=== PATIENT | male | born 1975 | race Caucasian/White ===

== ENCOUNTER 2017-03-01 23:23 | Emergency (ER) | payer OTHER ==
[~2017-03-01] VITALS: Ht 167.6 cm; Wt 108.9 kg
[~2017-03-01 23:23] MED LIST: FLEXERIL10 MG PO; GLYBURIDE5 MG PO; HYDROCODONE BIT1 T11 PO; METFORMIN1000 MG PO; MOTRIN800 MG PO; NKHM; PEN-VEE K500 MG PO; PENICILLIN VK500 MG PO; PREDNICOT20 MG PO
== END 2017-03-02 00:37 | disposition home or self-care (01) ==
LOC: ED 23:23
DX: R73.9 Hyperglycemia, unspecified (principal); Z79.84 Long term (current) use of oral hypoglycemic drugs; Z79.899 Other long term (current) drug therapy

== ENCOUNTER → 2022-12-13 | Emergency (ER) | payer OTHER ==
[~2022-12-13] VITALS: Ht 172.7 cm; Wt 127.9 kg
[~2022-12-13] MED LIST changes: +MELOXICAM15 MG PO
== END ==
LOC: ED 09:08
DX: S83.92XA Sprain of unspecified site of left knee, initial encounter (principal); I10 Essential (primary) hypertension; Z79.899 Other long term (current) drug therapy; W18.09XA Striking against other object with subsequent fall, initial encounter; Y93.89 Activity, other specified; Y92.89 Other specified places as the place of occurrence of the external cause; Y99.8 Other external cause status

== ENCOUNTER 2023-11-05 17:45 | Emergency (ER) | payer OTHER ==
[~2023-11-05] VITALS: Ht 167.6 cm; Wt 133.8 kg
[2023-11-05] MEDS ORDERED: JARDIANCE25 MG PO (17:50)
[2023-11-05] MEDS ORDERED: ASPIRIN ADULT L81 M2 PO (17:50)
[2023-11-05] MEDS ORDERED: AMLODIPINE BESY10 MG PO (17:50)
[2023-11-05] MEDS ORDERED: INSULIN LI100 UNIT/1 SQ (17:51)
[2023-11-05] MEDS ORDERED: TRULICITY4.5 MG/0.5 SQ (17:52)
[2023-11-05] MEDS ORDERED: QUETIAPINE FUMA50 M1 PO (17:52)
[2023-11-05] MEDS ORDERED: SODIUM CHLORIDE 0.9% 1,000 ML IV ONE (18:00)
[2023-11-05 18:15] LABS: VENOUS BLOOD GAS O2 SAT 75.2 % (60.0-85.0)
[2023-11-05 18:16] LABS: BASO % 0.3 % (0.0-1.0); EOS # 0.1 10*3/uL (0.0-0.4); EOS % 0.6 % (1.0-4.0); HEMATOCRIT 40.3 % (42.0-52.0); LYMPH # 1.3 10*3/uL (1.3-4.4); LYMPH % 16.7 % (27.0-41.0); MEAN CELL VOLUME 86.3 fl (80.0-94.0); MEAN CORPUSCULAR HGB 28.1 pg (27.0-31.0); MEAN CORPUSCULAR HGB CONC 32.5 g/dl (33.0-37.0); MEAN PLATELET VOLUME 10.6 fl (9.6-12.3); MONO # 0.6 10*3/uL (0.1-1.0); MONO % 8.1 % (3.0-9.0); NEUT # 5.8 10*3/uL (2.3-7.9); NEUT % 73.8 % (47.0-73.0); PLATELET COUNT AUTOMATED 216 10*3/uL (130-400); RED BLOOD COUNT 4.67 10*6/uL (4.50-5.90); RED CELL DISTRI WIDTH 13.7 % (0-14.5); WHITE BLOOD COUNT 7.8 10*3/uL (4.8-10.8)
[2023-11-05] MEDS ORDERED: Ondansetron Hydrochloride 4 MG/2 ML VIAL IV ONE (18:25)
[2023-11-05 18:35] LABS: ALKALINE PHOSPHATASE 103 U/L (46-116); BUN 8 mg/dl (9-23); CHLORIDE 102 mmol/L (98-107); POTASSIUM 3.9 mmol/L (3.4-5.1); SGPT/ALT 40 U/L (5-49); TOTAL PROTEIN 7.2 gm/dL (6.0-8.0)
[2023-11-05] MEDS ORDERED: diphenhydrAMINE hydrochloride 50 MG/ML VIAL IV ONE (19:20)
[2023-11-05] MEDS ORDERED: Metoclopramide Hydrochloride 10 MG/2 ML AMP IV ONE (19:20)
[2023-11-05 19:48] LABS: BILIRUBIN Negative (Negative); BLOOD Negative (Negative); CLARITY Clear (Clear); COLOR Yellow (Yellow); GLUCOSE 3+ (Negative); KETONE 4+ (Negative); LEUKO ESTERASE Negative (Negative); NITRITE Negative (Negative); PH 5.5 (4.5-8.0); SPECIFIC GRAVITY >= 1.030 (1.001-1.030)
[2023-11-05 19:56] LABS: BACTERIA TRACE; FINE GRANULAR CAST 0-2; MUCOUS 1+; RBC 0-2 rbc/hpf (0-2)
[2023-11-05] MEDS ORDERED: Ondansetron4 MG PO (20:05)
== END 2023-11-05 20:18 | disposition home or self-care (01) ==
LOC: ED 17:45
PROVIDERS: Nurse Practitioner Family
DX: A08.4 Viral intestinal infection, unspecified (principal); R11.2 Nausea with vomiting, unspecified; E11.9 Type 2 diabetes mellitus without complications; Z90.49 Acquired absence of other specified parts of digestive tract; Z79.899 Other long term (current) drug therapy; Z79.84 Long term (current) use of oral hypoglycemic drugs; Z79.82 Long term (current) use of aspirin; Z79.4 Long term (current) use of insulin

== ENCOUNTER 2024-09-05 04:40 | Emergency (ER) | payer OTHER ==
[~2024-09-05] VITALS: Ht 167.6 cm; Wt 138.3 kg
[~2024-09-05 04:40] MED LIST changes: +AMLODIPINE BESY10 MG PO; +ASPIRIN ADULT L81 M2 PO; +INSULIN LI100 UNIT/1 SQ; +JARDIANCE25 MG PO; +Ondansetron4 MG PO; +QUETIAPINE FUMA50 M1 PO; +TRULICITY4.5 MG/0.5 SQ
[2024-09-05] MEDS ORDERED: NAPROXEN250 MG PO (05:30)
== END 2024-09-05 05:36 | disposition home or self-care (01) ==
LOC: ED 04:40
DX: M25.511 Pain in right shoulder (principal); I10 Essential (primary) hypertension; E10.9 Type 1 diabetes mellitus without complications; Z79.4 Long term (current) use of insulin; Z79.899 Other long term (current) drug therapy; W18.39XA Other fall on same level, initial encounter; Y93.89 Activity, other specified; Y92.89 Other specified places as the place of occurrence of the external cause; Y99.8 Other external cause status

== ENCOUNTER 2024-11-29 12:01 | Observation (INO) | payer OTHER ==
[2024-11-29] VITALS (7 sets, daily range): BP systolic 138–179; BP diastolic 74–86
[~2024-11-29] VITALS: Wt 158.8 kg
[~2024-11-29 12:01] MED LIST changes: +METFORMIN HCL750 M1 PO; -METFORMIN1000 MG PO; +NAPROXEN250 MG PO
[2024-11-29] MEDS ORDERED: Ondansetron Hydrochloride 4 MG/2 ML VIAL IV ONE ×2 (12:45→17:45)
[2024-11-29 12:58] LABS: BASO # 0.0 10*3/uL (0.0-0.1); BASO % 0.4 % (0.0-1.0); EOS # 0.1 10*3/uL (0.0-0.4); EOS % 1.9 % (1.0-4.0); MEAN CELL VOLUME 84.7 fl (80.0-94.0); MEAN CORPUSCULAR HGB 28.2 pg (27.0-31.0); MEAN PLATELET VOLUME 10.5 fl (9.6-12.3); MONO # 0.3 10*3/uL (0.1-1.0); MONO % 6.1 % (3.0-9.0); NEUT # 4.0 10*3/uL (2.3-7.9); NEUT % 74.9 % (47.0-73.0); NUCLEATED RED BLOOD CELL 0.0 % (0.0-0.0); NUCLEATED RED BLOOD CELL 0.0 10*3/uL (0.0-0.0); PLATELET COUNT AUTOMATED 207 10*3/uL (130-400); RED CELL DISTRI WIDTH 13.2 % (0-14.5)
[2024-11-29] MEDS ORDERED: SODIUM CHLORIDE 0.9% 500 ML IV ONE (13:10)
[2024-11-29 13:18] LABS: BUN 10 mg/dl (9-23); CPK 58 U/L (34-171)
[2024-11-29] MEDS ORDERED: ALBUTEROL 8 GM INHALER INH ONE (15:20)
[2024-11-29] MEDS ORDERED: Dexamethasone Sodium Phospha 20 MG/5 ML VIAL IV ONE (15:20)
[2024-11-29] MEDS ORDERED: diphenhydrAMINE hydrochloride 50 MG/ML VIAL IV ONE (15:20)
[2024-11-29] MEDS ORDERED: Metoclopramide Hydrochloride 10 MG/2 ML VIAL IV ONE (15:20)
[2024-11-29] MEDS ORDERED: PREDNISONE20 M1 PO (15:22)
[2024-11-29] MEDS ORDERED: METHOCARBAMOL750 M1 PO (15:22)
[2024-11-29] MEDS ORDERED: ASPIRIN 325 MG TAB PO ONE (17:50)
[2024-11-29] MEDS ORDERED: Ondansetron Hydrochloride 4 MG/2 ML VIAL IV PRN (18:45)
[2024-11-29] MEDS ORDERED: ASPIRIN ENTERIC COATED 81 MG TAB PO ONE (18:45)
[2024-11-29] MEDS ORDERED: ACETAMINOPHEN 325 MG TAB PO PRN (18:45)
[2024-11-29] MEDS ORDERED: BISACODYL 10 MG SUPP R PRN (18:45)
[2024-11-29] MEDS ORDERED: Acetaminophen/Hydrocodone 5 MG/325 MG TABLET PO PRN (18:45)
[2024-11-29] MEDS ORDERED: ACETAMINOPHEN 650 MG SUPP R PRN (18:45)
[2024-11-29] MEDS ORDERED: DEXTROSE 50% 25 GM/50 ML VIAL IV PRN (18:55)
[2024-11-29] MEDS ORDERED: ZOLOFT100 MG PO ×2 (18:58→22:43)
[2024-11-29] MEDS ORDERED: VISTARIL25 MG PO (19:00)
[2024-11-29] MEDS ORDERED: INSULIN LISPRO 1 UNIT/0.01 ML SQ SCH (22:00)
[2024-11-29] MEDS ORDERED: ZOLOFT50 MG PO (22:43)
[2024-11-30 01:56] VITALS: BP 126/83
[2024-11-30 04:37] LABS: BASO # 0.0 10*3/uL (0.0-0.1); BASO % 0.1 % (0.0-1.0); EOS # 0.0 10*3/uL (0.0-0.4); EOS % 0.0 % (1.0-4.0); MEAN CELL VOLUME 84.6 fl (80.0-94.0); MEAN CORPUSCULAR HGB 28.1 pg (27.0-31.0); MEAN PLATELET VOLUME 10.7 fl (9.6-12.3); MONO # 0.2 10*3/uL (0.1-1.0); MONO % 1.9 % (3.0-9.0); NEUT # 8.5 10*3/uL (2.3-7.9); NEUT % 88.9 % (47.0-73.0); NUCLEATED RED BLOOD CELL 0.0 % (0.0-0.0); NUCLEATED RED BLOOD CELL 0.0 10*3/uL (0.0-0.0); PLATELET COUNT AUTOMATED 238 10*3/uL (130-400); RED CELL DISTRI WIDTH 13.4 % (0-14.5)
[2024-11-30 05:10] LABS: VITAMIN D, 25-HYDROXY 19.3 ng/mL (30-100)
[2024-11-30 05:12] VITALS: BP 131/112
[2024-11-30 05:12] LABS: BUN 15 mg/dl (9-23); FREE T4 1.02 ng/dl (0.89-1.76); LDL CHOLESTEROL 113 mg/dL (9-159); SGPT/ALT 19 U/L (5-49)
[2024-11-30] MEDS ORDERED: Regadenoson 0.4 MG/5 ML SYR IV ONE (06:42)
[2024-11-30] MEDS ORDERED: Technetium Tc 99M Tetrofosmi 0.23 MG KIT IJ SCH (08:20)
[2024-11-30] MEDS ORDERED: EMPAGLIFLOZIN 25 MG TABLET PO SCH (10:00)
[2024-11-30] MEDS ORDERED: FUROSEMIDE 40 MG/4 ML VIAL IV SCH (10:00)
[2024-11-30] MEDS ORDERED: METOPROLOL SUCCINATE XR 50 MG TAB PO SCH (10:00)
[2024-11-30] MEDS ORDERED: ASPIRIN ENTERIC COATED 81 MG TAB PO SCH ×2 (10:00)
[2024-11-30] MEDS ORDERED: ATORVASTATIN CALCIUM 80 MG TAB PO SCH ×2 (10:00→22:00)
[2024-11-30 12:01] VITALS: BP 152/74
[2024-11-30] MEDS ORDERED: ATORVASTATIN CA80 M1 PO (13:54)
[2024-11-30] MEDS ORDERED: METOPROLOL SUCC50 M1 PO (13:54)
[2024-11-30 16:00] VITALS: BP 136/55
== END 2024-11-30 19:45 | disposition home or self-care (01) ==
LOC: ED 12:01 → EDHOLD 17:52 → 5E 18:44 → EDHOLD 11-30 01:34 → 5E 11-30 08:07
PROVIDERS: Emergency Medicine; Student in an Organized Health Care Education/Training Program; ADMIT Internal Medicine; ATTEND Internal Medicine
DX: M94.0 Chondrocostal junction syndrome [Tietze] (principal); D64.9 Anemia, unspecified; G62.9 Polyneuropathy, unspecified; B88.8 Other specified infestations; E11.65 Type 2 diabetes mellitus with hyperglycemia; R60.0 Localized edema; B35.1 Tinea unguium; Z79.899 Other long term (current) drug therapy

== ENCOUNTER 2024-12-01 21:48 | Emergency (ER) | payer OTHER ==
[~2024-12-01] VITALS: Ht 167.6 cm; Wt 144.2 kg
[~2024-12-01 21:48] MED LIST changes: +ATORVASTATIN CA80 M1 PO; +METHOCARBAMOL750 M1 PO; +METOPROLOL SUCC50 M1 PO; +PREDNISONE20 M1 PO; +VISTARIL25 MG PO; +ZOLOFT100 MG PO; +ZOLOFT50 MG PO
[2024-12-01] MEDS ORDERED: Ondansetron Hydrochloride 4 MG TAB SL ONE (21:55)
[2024-12-01 22:20] LABS: BASO # 0.0 10*3/uL (0.0-0.1); BASO % 0.4 % (0.0-1.0); EOS # 0.1 10*3/uL (0.0-0.4); EOS % 1.0 % (1.0-4.0); MEAN CELL VOLUME 86.5 fl (80.0-94.0); MEAN CORPUSCULAR HGB 27.8 pg (27.0-31.0); MEAN PLATELET VOLUME 10.6 fl (9.6-12.3); MONO # 0.5 10*3/uL (0.1-1.0); MONO % 5.6 % (3.0-9.0); NEUT # 5.7 10*3/uL (2.3-7.9); NEUT % 70.6 % (47.0-73.0); NUCLEATED RED BLOOD CELL 0.0 % (0.0-0.0); NUCLEATED RED BLOOD CELL 0.0 10*3/uL (0.0-0.0); PLATELET COUNT AUTOMATED 234 10*3/uL (130-400); RED CELL DISTRI WIDTH 13.5 % (0-14.5)
[2024-12-01 22:44] LABS: BUN 13 mg/dl (9-23); SGPT/ALT 17 U/L (5-49)
[2024-12-01] MEDS ORDERED: POTASSIUM CHLORIDE 20 MEQ TAB PO ONE (23:45)
[2024-12-02] MEDS ORDERED: Ondansetron4 MG PO (01:27)
== END 2024-12-02 01:45 | disposition home or self-care (01) ==
LOC: ED 21:48
PROVIDERS: Internal Medicine
DX: B34.9 Viral infection, unspecified (principal); E87.6 Hypokalemia; D64.9 Anemia, unspecified; R79.82 Elevated C-reactive protein (CRP); R11.2 Nausea with vomiting, unspecified; R42 Dizziness and giddiness; Z79.899 Other long term (current) drug therapy; Z79.82 Long term (current) use of aspirin; Z79.4 Long term (current) use of insulin; Z79.84 Long term (current) use of oral hypoglycemic drugs; Z90.49 Acquired absence of other specified parts of digestive tract; Z20.822 Contact with and (suspected) exposure to COVID-19

== ENCOUNTER 2024-12-16 05:55 | Emergency (ER) | payer OTHER ==
[~2024-12-16] VITALS: Ht 167.6 cm; Wt 145.1 kg
[2024-12-16] MEDS ORDERED: CETRAXAL1 EACH OT (06:15)
[2024-12-16] MEDS ORDERED: AMOX-CLAV 875-1 EACH PO (06:15)
== END 2024-12-16 06:22 | disposition home or self-care (01) ==
LOC: ED 05:55
DX: H66.92 Otitis media, unspecified, left ear (principal); H60.92 Unspecified otitis externa, left ear; Z79.899 Other long term (current) drug therapy; Z79.84 Long term (current) use of oral hypoglycemic drugs; Z90.49 Acquired absence of other specified parts of digestive tract; Z89.422 Acquired absence of other left toe(s); Z89.421 Acquired absence of other right toe(s)

== ENCOUNTER 2025-01-30 20:35 | Emergency (ER) | payer OTHER ==
[~2025-01-30] VITALS: Ht 170.1 cm; Wt 158.8 kg
[~2025-01-30 20:35] MED LIST changes: +AMOX-CLAV 875-1 EACH PO; +CETRAXAL1 EACH OT
[2025-01-30] MEDS ORDERED: Ondansetron Hydrochloride 4 MG/2 ML VIAL IV ONE (21:00)
[2025-01-30] MEDS ORDERED: SODIUM CHLORIDE 0.9% 1,000 ML IV ONE (21:00)
[2025-01-30 21:23] LABS: BASO # 0.1 10*3/uL (0.0-0.1); BASO % 0.5 % (0.0-1.0); EOS # 0.1 10*3/uL (0.0-0.4); EOS % 0.6 % (1.0-4.0); MEAN CELL VOLUME 86.7 fl (80.0-94.0); MEAN CORPUSCULAR HGB 27.3 pg (27.0-31.0); MEAN PLATELET VOLUME 10.7 fl (9.6-12.3); MONO # 0.9 10*3/uL (0.1-1.0); MONO % 8.5 % (3.0-9.0); NEUT # 7.9 10*3/uL (2.3-7.9); NEUT % 76.7 % (47.0-73.0); NUCLEATED RED BLOOD CELL 0.0 % (0.0-0.0); NUCLEATED RED BLOOD CELL 0.0 10*3/uL (0.0-0.0); PLATELET COUNT AUTOMATED 267 10*3/uL (130-400); RED CELL DISTRI WIDTH 13.3 % (0-14.5)
[2025-01-30 21:44] LABS: BUN 13 mg/dl (9-23); SGPT/ALT 11 U/L (5-49)
[2025-01-30] MEDS ORDERED: Ondansetron4 MG PO (21:59)
[2025-01-30] MEDS ORDERED: SEPTDS PO (21:59)
[2025-01-30] MEDS ORDERED: Sulfamethoxazole/Trimethopri 1 TAB TAB PO ONE (22:05)
[2025-01-30] MEDS ORDERED: Ondansetron Hydrochloride 4 MG TAB PO ONE (22:05)
== END 2025-01-30 22:12 | disposition home or self-care (01) ==
LOC: ED 20:35
DX: L89.890 Pressure ulcer of other site, unstageable (principal); I10 Essential (primary) hypertension; F32.A Depression, unspecified; E11.40 Type 2 diabetes mellitus with diabetic neuropathy, unspecified; Z90.49 Acquired absence of other specified parts of digestive tract

== ENCOUNTER → 2025-02-10 | Outpatient (CLI) | payer OTHER ==
[~2025-02-10] MED LIST changes: +SEPTDS PO
== END | disposition home or self-care (01) ==
LOC: WOUNDCARE 03:44
PROVIDERS: ATTEND Nurse Practitioner Family
DX: E11.621 Type 2 diabetes mellitus with foot ulcer (principal); L97.512 Non-pressure chronic ulcer of other part of right foot with fat layer exposed; L84 Corns and callosities; L95.8 Other vasculitis limited to the skin; E11.40 Type 2 diabetes mellitus with diabetic neuropathy, unspecified; I10 Essential (primary) hypertension; F32.A Depression, unspecified; Z90.49 Acquired absence of other specified parts of digestive tract; Z89.421 Acquired absence of other right toe(s); Z89.422 Acquired absence of other left toe(s)

== ENCOUNTER → 2025-02-17 | Outpatient (CLI) | payer OTHER | LOC: WOUNDCARE 03:01 | PROVIDERS: ATTEND Nurse Practitioner Family | DX: E11.621 Type 2 diabetes mellitus with foot ulcer (principal); L97.512 Non-pressure chronic ulcer of other part of right foot with fat layer exposed; B95.8 Unspecified staphylococcus as the cause of diseases classified elsewhere; L84 Corns and callosities; E11.40 Type 2 diabetes mellitus with diabetic neuropathy, unspecified; I10 Essential (primary) hypertension; F32.A Depression, unspecified; Z90.49 Acquired absence of other specified parts of digestive tract ==

== ENCOUNTER → 2025-02-24 | Outpatient (CLI) | payer OTHER | LOC: WOUNDCARE 00:48 | PROVIDERS: ATTEND Nurse Practitioner Family | DX: E11.621 Type 2 diabetes mellitus with foot ulcer (principal); L97.512 Non-pressure chronic ulcer of other part of right foot with fat layer exposed; E11.40 Type 2 diabetes mellitus with diabetic neuropathy, unspecified; B95.8 Unspecified staphylococcus as the cause of diseases classified elsewhere; I10 Essential (primary) hypertension; F32.A Depression, unspecified; Z90.49 Acquired absence of other specified parts of digestive tract; Z89.421 Acquired absence of other right toe(s); Z98.890 Other specified postprocedural states; Z79.84 Long term (current) use of oral hypoglycemic drugs; Z79.4 Long term (current) use of insulin; Z79.82 Long term (current) use of aspirin; Z79.899 Other long term (current) drug therapy ==

== ENCOUNTER → 2025-02-28 | Outpatient (CLI) | payer OTHER | END | disposition home or self-care (01) | LOC: WOUNDCARE 02:55 | PROVIDERS: ATTEND Nurse Practitioner Family | DX: E11.621 Type 2 diabetes mellitus with foot ulcer (principal); L97.512 Non-pressure chronic ulcer of other part of right foot with fat layer exposed; B95.8 Unspecified staphylococcus as the cause of diseases classified elsewhere; E11.40 Type 2 diabetes mellitus with diabetic neuropathy, unspecified; I10 Essential (primary) hypertension; F32.A Depression, unspecified; Z90.49 Acquired absence of other specified parts of digestive tract; Z89.431 Acquired absence of right foot; Z89.432 Acquired absence of left foot ==

== ENCOUNTER → 2025-03-07 | Outpatient (CLI) | payer OTHER | END | disposition home or self-care (01) | LOC: WOUNDCARE 02:26 | PROVIDERS: ATTEND Nurse Practitioner Family | DX: E11.621 Type 2 diabetes mellitus with foot ulcer (principal); L97.512 Non-pressure chronic ulcer of other part of right foot with fat layer exposed; B95.8 Unspecified staphylococcus as the cause of diseases classified elsewhere; E11.40 Type 2 diabetes mellitus with diabetic neuropathy, unspecified; I10 Essential (primary) hypertension; F32.A Depression, unspecified; Z90.49 Acquired absence of other specified parts of digestive tract; Z89.422 Acquired absence of other left toe(s); Z89.421 Acquired absence of other right toe(s) ==